=== PATIENT | male | born 1975 | race Caucasian/White ===

== ENCOUNTER → 2019-06-24 | Outpatient (CLI) | payer SELFPAY | PROVIDERS: Family Provider Family Medicine; Visit Provider Family Medicine | DX: R91.8 Other nonspecific abnormal finding of lung field (principal) | CPT/HCPCS: 71260; Q9967 ==

== ENCOUNTER 2019-07-21 12:28 | Outpatient (CLI) | payer OTHER, SELFPAY ==
[2019-07-21 13:22] LABS: Basophils # 0.1 10^3/uL (0.0-0.1); Basophils % 1.3 %; Eosinophils # 0.2 10^3/uL (0.0-0.8); Eosinophils % 4.9 %; Hematocrit 47.9 % (42.0-52.0); Lymphocytes # 0.7 10^3/uL (0.8-4.8); Lymphocytes % 14.9 %; Mean Corpuscular HGB Conc 33.4 g/dL (30.0-36.0); Mean Corpuscular Hemoglobin 30.4 pg (28.0-34.0); Mean Corpuscular Volume 90.9 fL (80-94); Mean Platelet Volume 12.2 fL (7.4-10.4); Monocytes # 0.5 10^3/uL (0.2-0.9); Monocytes % 10.7 %; Neutrophils % 67.8 %; Nucleated Red Blood Cells % 0 %; Platelet Count 169 10^3/cmm (130-400); Red Blood Count 5.27 10^6/uL (4.1-5.3); Red Cell Distribution Width 12.1 % (12.1-15.1); White Blood Count 4.5 10^3/uL (4.0-10.0)
[2019-07-21 13:46] LABS: Alanine Aminotransferase 20 U/L (0-41); Alkaline Phosphatase 67 IU/L (40-130); Anion Gap 16.4 (5-19); Aspartate Amino Transferase 19 U/L (0-40); Blood Urea Nitrogen 13 mg/dL (6-20); Carbon Dioxide 25 mmol/L (22-29); Chloride 99 mmol/L (98-107); Glomerular Filtration Rate 81.2 mL/min (90-130); Glucose 97 mg/dL (74-109); Potassium 4.4 mmol/L (3.5-5.1); Sodium 136 mmol/L (136-145); Total Bilirubin 0.5 mg/dL (0.15-1.2)
[2019-07-21 13:55] LABS: Calcium 10.2 mg/dL (8.5-10.5); Parathyroid Hormone 34.3 pg/mL (15-65)
[2019-07-21 14:18] LABS: 25 Hydroxy Vitamin D 19 ng/mL (30-100)
[2019-07-21 15:14] LABS: Slide Review Slide Review Perform
[2019-07-25 13:12] LABS: Angiotensin Converting Enzyme 64 U/L (9-67); Quantiferon Mitogen 8.15 IU/mL; Quantiferon Nil 0.03 IU/mL; Quantiferon Plus TB2 0.01 IU/mL; Quantiferon TB Gold NEGATIVE (NEGATIVE)
[2019-07-27 16:32] LABS: Vit D 1,25 (Oh)2, Total 59 pg/mL (18-72); Vit D2 1,25 (Oh)2 <8 pg/mL; Vit D3 1,25 (Oh)2 59 pg/mL
== END 2019-07-21 12:29 | disposition home or self-care (01) ==
LOC: LAB 12:35
PROVIDERS: Family Provider Family Medicine; PCP Family Medicine; Visit Provider Internal Medicine Critical Care Medicine
DX: R59.0 Localized enlarged lymph nodes (principal); D86.9 Sarcoidosis, unspecified
CPT/HCPCS: 80053; 82164; 82306; 82310; 82652; 83970; 85025; 86480; 86698

== ENCOUNTER 2019-07-31 07:44 | Outpatient (CLI) | payer OTHER, SELFPAY | END 2019-07-31 07:45 | disposition home or self-care (01) | LOC: RT 07:47 | PROVIDERS: Family Provider Family Medicine; PCP Family Medicine; Visit Provider Internal Medicine Critical Care Medicine | DX: D86.9 Sarcoidosis, unspecified (principal) | CPT/HCPCS: 94010; 94060; 94726; 94729 ==

== ENCOUNTER 2019-08-01 05:53 | Day surgery (SDC) | payer OTHER, SELFPAY ==
[2019-07-31 09:47] VITALS: BMI 29.7
[2019-08-01] VITALS (7 sets, daily range): BP systolic 114–144; BP diastolic 76–88; PULSE 76–87; RESP 16–22; TEMP 36.1–36.8; O2SAT 95–99
--- NOTE | 2019-08-01 | SCC_ITS ---
Procedure: Name of the procedure: Bronchoscopy with inspection of the airway, bronchoalveolar lavage, endobronchial biopsies, transbronchial biopsies, endobronchial ultrasound-guided transbronchial needle aspiration of lymph nodes and control of bleeding. 88 seconds of fluoroscopic guidance, for a cumulative dose of 5.09 mGy, was provided to Dr. Connors by the radiology department. C-arm images of the chest were saved for the patient's permanent record. MTDD
--- NOTE | 2019-08-01 | XR_ITS ---
WS: [id number] AP C-arm fluoroscopy view of the right lower chest, 08/01/2019 Clinical Data: BRONCH IMAGES Comparison: None. Findings: There is a bronchoscopy scope which appears in in the right lower chest XR/XR chest 1V portable [id number] Impression: Bronchoscopy scope ending in the right lower chest.
[2019-08-01] MEDS: sodium chloride 0.9% 1,000 ML 30 ML IV (06:32)
--- NOTE | 2019-08-01 06:41 | ANES.PREANE2 ---
Pre-Anesthetic Assessment Pre-Anesthetic Assessment: Height/Weight: Height 1.78 m Weight 93.894 kg Temp Pulse Resp BP Pulse Ox 98.3 F 80 18 144/88 99 08/01/19 06:15 08/01/19 06:15 08/01/19 06:15 08/01/19 06:15 08/01/19 06:15 Preop Diagnosis: Lung nodule Proposed Procedure: Operation Date: 08/01/19 07:00 Proposed Procedures p Ebus/Broncoscopy(Not Applicable) - Nilsa Connors MD Last intake: Intake Last Liquid Date 07/31/19 Last Liquid Time 22:00 Last Solid Date 07/31/19 Last Solid Time 20:00 Exam: Pre-Anes Outpt Exam: alert, oriented x 3, clear to auscultation bilaterally and regular rate & rhythm Airway: Submandibular: WNL Cervical ROM: WNL MP: 1 Dentition: Chipped Neuropsych: Neuropsych: Depression Anesthetic Plan: Anesthesia: General Meds/Allergies Current Medications: Current Medications Generic Name Dose Route Start Last Admin Trade Name Freq PRN Reason Stop Dose Admin Sodium Chloride 1,000 mls @ 30 ml s/hr 08/01/19 06:15 08/01/19 06:32 Sodium Chloride 0.9% IV 08/02/19 06:14 30 mls/hr .Q24H NOBLE Administration PFSH Anesthesia PFSH: Social History Smoking and tobacco status: never smoked Alcohol intake: current Alcohol intake frequency: holidays/special occasions only Alcohol type: beer Household members: spouse Marital status: Current occupational status: employed Current occupation: [employer] History of recent travel: No Current gender identity: Male Data Anesthesia Cardiac Studies: No Data to Display
--- NOTE | 2019-08-01 06:59 | PM.HPUD ---
H&P update H&P Update: DATE OF SURGERY/PROCEDURE: 08/01/19 DATE H&P PERFORMED: 07/21/19 PREOP DIAGNOSIS: Lung nodule PLANNED PROCEDURE: Operation Date: 08/01/19 07:00 Proposed Procedures p Ebus/Broncoscopy(Not Applicable) - Nilsa Connors MD Full H&P HPI: HPI: Patient is coming in for bronchoscopy and endobronchial ultrasound-guided transbronchial needle aspiration and transbronchial biopsy for evaluation of radiologic abnormalities predominantly in the perilymphatic distribution. The primary concern is for sarcoidosis. Medications/Allergies: Current Medications: Current Medications Generic Name Dose Route Start Last Admin Trade Name Freq PRN Reason Stop Dose Admin Sodium Chloride 1,000 mls @ 30 ml s/hr 08/01/19 06:15 08/01/19 06:32 Sodium Chloride 0.9% IV 08/02/19 06:14 30 mls/hr .Q24H NOBLE Administration Perinent History: Medical/Surgical History: Medical History (Updated 07/21/19 @ 09:50 by Nilsa Connors MD) Depression (Acute) Pulmonary nodules (Acute) Family History: Family History (Updated 07/21/19 @ 09:12 by Danielle Nathan LPN) Father Heart disease Psychiatric illness Mother Chronic kidney disease (CKD) Psychiatric illness Social History: Social History Smoking and tobacco status: never smoked Alcohol intake: current Alcohol intake frequency: holidays/special occasions only Alcohol type: beer Household members: spouse Marital status: Current occupational status: employed Current occupation: [employer] History of recent travel: No Current gender identity: Male A&P Assessment and plan (1) Pulmonary nodules: The pulmonary nodules are in the perilymphatic distribution with calcified lymphadenopathy. The patient is completely asymptomatic at this time. Based on the distribution of the pulmonary nodule I strongly believe this this represents sarcoidosis. However, fungal infection is endemic in this area and histoplasmosis can present the same way. The initial blood work is negative for any infectious etiology including tuberculosis. The patient is undergoing bronchoscopy and endobronchial ultrasound-guided transbronchial needle aspiration for histologic diagnosis of possible sarcoidosis. Status: Acute Code(s): R91.8 - Other nonspecific abnormal finding of lung field
[2019-08-01] MEDS: lidocaine 1% INJ 20 mL XX (07:23)
--- NOTE | 2019-08-01 08:49 | SUR.PHASEI ---
[id number] PATIENT TO PACU AT THIS TIME. RR EVEN AND UNLABORED. PLACED ON SIMPLE MASK AT 8L, SPO2 99%. PATIENT RESPONSIVE TO VERBAL STIMULI.
--- NOTE | 2019-08-01 08:59 | PM.OP ---
Operative Report Date of procedure: August 01, 2019 Pre-op Diagnosis: Lung nodule in the perilymphatic distribution concern for sarcoidosis Anesthesia: General Brief History: This is a 43-year-old gentleman with pulmonary in perilymphatic distribution with concerns for sarcoidosis. Procedure: Name of the procedure: Bronchoscopy with bronchoalveolar lavage and control of bleeding. 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 Anesthesia: Monitored anesthesia care. Local anesthesia: 1% lidocaine instilled on the vocal cords, 3 mL, 1% lidocaine in the airway and pérez a total of 5 mL. Description of the procedure: The patient was positioned optimally. Monitored anesthesia care was initiated by the anesthesia team. The bronchoscope was advanced through the mouth. The vocal cords and epiglottis were anesthetized with 1% lidocaine. The bronchoscope was passed through the vocal cords and the airway was anesthetized with 1% lidocaine again. Blood was noted in the upper trachea and throughout the bronchial tree in the right lung. There was blood in the entrance of right upper lobe. Slow oozing of blood noted from the right upper lobe. There was blood in the bronchus intermedius as well as in the lower lobe. The blood was suctioned out as much as possible. There is no obvious blood in the right middle lobe. Inspection of right lung segments did not reveal any endobronchial lesion or any mucus plugging. The bronchial tree of the left lung was normal. There is no endobronchial lesion or any evidence of bleeding. Bronchoalveolar lavage was obtained from the apical segment of right upper lobe. A total of 100 mL of normal saline was instilled, the return was 22 mL. The return was bloody and there was no mucous plug. Some bleeding was noted following the performance of bronchoalveolar lavage. The patient was treated with cold saline and the airways were cleaned up. There was no active bleeding once the procedure was completed. The bronchoalveolar lavage specimen was sent for Gram stain and culture, fungal stain and culture, AFB stain and culture and cytology. I have also sent it for bronchoalveolar lavage galactomannan level. Complications: There is no immediate complications. Chest x-ray: Chest x-ray did not reveal any evidence of pneumothorax. Duration of the procedure: 19 minutes.
--- NOTE | 2019-08-01 09:05 | SUR.PHASEI ---
0901 PATIENT TO OPS. DENIES PAIN. A/OX3. RR EVEN AND UNLABORED.
--- NOTE | 2019-08-01 09:14 | XR_ITS ---
WS: [id number] Portable AP upright chest, 08/01/2019 Clinical Data: POST PROCEDURE Comparison: CT chest, 06/24/2019. Findings: The small nodules which are evident on the CT chest are barely visible on the current chest x-ray. The heart is normal. The pulmonary vascularity is not increased. No pneumonia or pneumothorax is seen. XR/XR chest 1V portable [id number] Impression: 1. Negative for acute cardiopulmonary disease. 2. Pulmonary nodules visible only when compared with CT chest.
--- NOTE | 2019-08-01 09:17 | PM.OP ---
Operative Report Date of procedure: August 01, 2019 Pre-op Diagnosis: Lung nodule in the perilymphatic distribution concern for sarcoidosis Brief History: This is a 43-year-old gentleman that I had the pleasure to see for evaluation of pulmonary nodule. The patient has pulmonary nodule in the distribution of lymphovascular bundle as well as calcified mediastinal hilar lymphadenopathy. The patient is undergoing bronchoscopy evaluation for possible diagnosis of sarcoidosis Procedure: Name of the procedure: Bronchoscopy with inspection of the airway, bronchoalveolar lavage, endobronchial biopsies, transbronchial biopsies, endobronchial ultrasound-guided transbronchial needle aspiration of lymph nodes and control of bleeding. Indication: Pulmonary nodule in perilymphatic distribution and hilar and mediastinal lymphadenopathy with calcification. Anesthesia: General anesthesia. Local anesthesia: The pérez in the right and left mainstem bronchi were anesthetized with 1% lidocaine, 3 mL. Description of the procedure: The procedure was explained to the patient and the consent was obtained. The patient was brought to the OR. The patient underwent endotracheal intubation for general anesthesia. Following induction of general anesthesia, the bronchoscope was advanced through the ET tube. The lower trachea appeared to be erythematous, no endotracheal lesion was seen. The pérez was sharp. The pérez, the right and left mainstem bronchi are anesthetized with 1% lidocaine. In a systematic manner bilateral bronchial tree was then examined. The bronchoscope was advanced into the left mainstem bronchus. There was erythema,mucus and areas of cobblestoning. The left upper lobe, lingula and left lower lobe bronchi were examined up to the third subsegmental level and no abnormalities were identified. There is no endobronchial lesion, active bleeding or mucous plug. The bronchoscope was then introduced into the right mainstem bronchus. The right upper lobe, right middle lobe and right lower lobe bronchi were examined up to the third subsegmental level and no abnormalities were identified. There was airway erythema throughout the lung. Bronchoalveolar lavage was performed from the medial segment of the right middle lobe. 60 mL of saline was instilled, fluid return was 15 mL. The fluid was cloudy. Endobronchial biopsies were performed from the left upper lobe. 3 specimens were obtained. The endobronchial ultrasound was introduced through the ET tube. Mediastinal and hilar lymphadenopathy was identified with the ultrasound. The lymph nodes showed distinct cortex and Medela. Transbronchial needle aspiration was performed from 4R, 7, 10 R lymph nodes. The bronchoscope was reintroduced. Transbronchial biopsies were performed from the right lower lobe. 4 samples were obtained. Samples: 1. Bronchoalveolar lavage specimen was sent for cell count and differential, CD4 CD8 ratio, Gram stain and culture, fungal stain and culture, AFB stain and culture, histoplasma antigen. 2. The endobronchial biopsies are sent for histopathology. 3. The transbronchial biopsies are sent for histopathology. 1 specimen was sent for AFB and fungal culture. 4. The transbronchial needle aspiration of the aforementioned lymph node groups were sent for cytology. 1 specimen from 4R lymph node was sent for culture. Complications: There was no immediate complications. Postprocedure fluoroscopy did not reveal any pneumothorax. The patient was extubated and brought to the PACU in stable condition. Chest x-ray: Pending
[2019-08-01] MEDS: ondansetron 2 mg/ML SDV 2 mL 4 MG IVP (09:28)
--- NOTE | 2019-08-01 09:36 | SUR.OPER ---
balloon from EBUS scope, removed intact
[2019-08-01 11:02] LABS: Apprearance, Bronch Wash Turbid (CLEAR); Color, Bronc Wash Colorless
[2019-08-01 12:46] LABS: PATH Referral Yes; Total Cells Counted Bronch 300
== END 2019-08-01 09:55 | disposition home or self-care (01) ==
PROVIDERS: Family Provider Family Medicine; PCP Family Medicine; Visit Provider Internal Medicine Critical Care Medicine
PROC: BB4BZZZ Ultrasonography of Pleura (ICD-10-PCS; CPT 31624; principal; 2019-08-01 07:00)
DX: R91.8 Other nonspecific abnormal finding of lung field (principal); R59.1 Generalized enlarged lymph nodes; Z82.49 Family history of ischemic heart disease and other diseases of the circulatory system; F32.9 Major depressive disorder, single episode, unspecified
CPT/HCPCS: 31624; 31625; 31645; 31654; 12345; 71045; 73600; 76000; 80500; 87015; 87070; 87102; 87116; 87176; 87205; 87206; 87385; 87801; 88112; 88305; 89050; 96374; J1100; J2001; J2405; J2704; J3010; J3490; J7030

== ENCOUNTER 2020-02-02 13:38 | Outpatient (CLI) | payer OTHER, SELFPAY ==
--- NOTE | 2020-02-02 13:45 | CT_ITS ---
WS: [id number] CT CHEST WITHOUT INTRAVENOUS CONTRAST HISTORY: Pulmonary nodule TECHNIQUE: Contiguous 5 mm axial imaging performed on the thorax. Coronal and sagittal reformats are submitted. All CT scans at [facility] use at least one of these dose optimization techniq ues: automated exposure control; mA and/or kV adjustment per patient size (includes targeted exams wh ere dose is matched to clinical indication); or iterative reconstruction. CONTRAST: None DLP: 1019.01 mGycm COMPARISON: 06/24/2019 Lungs and central airway: Innumerable pulmonary nodules are noted throughout both lungs. Some of thes e nodules contain central calcifications. These nodules ranging in size from a few millimeters with t he largest measuring 10 mm. No significant progression of these nodules. Some of these nodules are ne gative. Lymphatic distribution and others are pleural-based. No endobronchial lesions. Pleura: Mild pleural-based nodularity is similar to the prior study. Heart and pericardium: Normal size heart. No pericardial effusion. Mediastinum and stephanie: There are numerous lymph nodes in the mediastinum and hilar regions. Majority o f these lymph nodes contain benign calcifications. Hilar and paratracheal lymph nodes are identified as on the prior study. Vessels: Normal size aortic and pulmonary artery. No coronary artery calcifications. Chest wall and lower neck: No soft tissue masses. Upper abdomen: Negative adrenal glands. Osseous structures: No bone destruction. CT/CT chest wo con [id number] IMPRESSION: 1. Innumerable multilobar pulmonary nodules. Some of these have benign calcifi cations and others are noncalcified. Not a significant progression since the pr ior study. Differential remains the same and includes sarcoidosis, silicosis an d coal workers lung and healed granulomatous disease. 2. Partially calcified mediastinal and hilar lymph nodes. Unchanged and benign in appearance.
== END 2020-02-02 13:39 | disposition home or self-care (01) ==
LOC: RADWPI 13:41
PROVIDERS: Family Provider Family Medicine; PCP Family Medicine; Visit Provider Internal Medicine Critical Care Medicine
DX: R91.1 Solitary pulmonary nodule (principal)
CPT/HCPCS: 71250

== ENCOUNTER 2020-08-03 11:42 | Outpatient (CLI) | payer OTHER, SELFPAY ==
[2020-08-04 14:42] LABS: Angiotensin Converting Enzyme 56 U/L (9-67)
[2020-08-09 17:03] LABS: Vit D 1,25 (Oh)2, Total 46 pg/mL (18-72); Vit D2 1,25 (Oh)2 <8 pg/mL; Vit D3 1,25 (Oh)2 46 pg/mL
== END 2020-08-03 11:43 | disposition home or self-care (01) ==
PROVIDERS: PCP Family Medicine; Visit Provider Internal Medicine Critical Care Medicine
DX: D86.9 Sarcoidosis, unspecified (principal); Z20.828 Contact with and (suspected) exposure to other viral communicable diseases
CPT/HCPCS: 36415; 82164; 82652

== ENCOUNTER → 2020-10-03 12:41 | Outpatient (BNVA) | payer OTHER, SELFPAY | PROVIDERS: PCP Family Medicine; Visit Provider Nurse Practitioner | DX: Z20.822 Contact with and (suspected) exposure to COVID-19 (principal) | CPT/HCPCS: 87635 ==

== ENCOUNTER 2020-10-07 11:12 | Outpatient (CLI) | payer OTHER, SELFPAY ==
--- NOTE | 2020-10-07 13:52 | PFTS_ITS ---
Date of Study:10/06/20 Date of Dictation: 10/08/20 MECHANICS: Prebronchodilator Forced vital capacity (FVC) is normal. Prebronchodilator Forced expiratory volume in one second (FEV1) is normal. FEV1/FVC is normal. Post bronchodilator study not performed. FLOW VOLUME LOOP: Normal . LUNG VOLUMES: Total lung capacity (TLC) is Normal . Residual volume (RV) is normal. DIFFUSING CAPACITY FOR CARBON MONOXIDE: Normal. . INTERPRETATION: The pulmonary function tests are normal. MTDD
== END 2020-10-07 11:13 | disposition home or self-care (01) ==
LOC: RT 11:15
PROVIDERS: PCP Family Medicine; Visit Provider Internal Medicine Critical Care Medicine
DX: D86.9 Sarcoidosis, unspecified (principal)
CPT/HCPCS: 94010; 94726; 94729